=== PATIENT | female | born 1955 | race Caucasian/White ===

== ENCOUNTER → 2017-02-06 | Outpatient (CLI) | payer BC ==
--- NOTE | 2017-02-06 22:08 | Diagnostic Imaging Report ---
EXAMINATION: DEXA scan. INDICATION: Osteopenia. TECHNIQUE: Bone mineral density estimated based on dual energy radiography over the lumbar spine and femoral necks was performed. FINDINGS: The lumbar spine T-score is -2. This is 0.9% decreased density measurement compared to 2015. T-score over the left femoral neck is -0.8 and on the right side is -0.6. This is 1.4% increased density measurement compared to the previous exam. IMPRESSION: Osteopenia. Dictated by: Dictated on workstation # [id number]
== END ==
LOC: RAD 10:52
PROVIDERS: ATTEND Family Medicine
DX: M85.89 Other specified disorders of bone density and structure, multiple sites (principal)
CPT/HCPCS: 77080

== ENCOUNTER → 2017-02-17 | Outpatient (CLI) | payer BC ==
--- NOTE | 2017-02-18 10:49 | Diagnostic Imaging Report ---
Bilateral screening mammogram 2D views with tomosynthesis The current study was also evaluated with a Computer Aided Detection (CAD) system. INDICATION: Screening. No current complaints stated on the questionnaire. COMPARISON: 02/14/2016. FINDINGS: The breasts are composed of heterogeneously dense parenchyma which may decrease mammographic sensitivity. There is an asymmetry along the outer aspect of the right breast measuring 7 mm in size. Previously at this location there is suggestion of an oil cyst. This is potentially area of scarring or sequela of rupture of this oil cyst. The left breast demonstrate no definite change. IMPRESSION: Focal compression views and ultrasound evaluation for lateral right breast asymmetry is recommended. ACR BI-RADS Category 0: Incomplete. (Needs additional imaging evaluation). Result letter will be mailed to the patient. Note: At least 10% of breast cancer is not imaged by mammography. Dictated by: Dictated on workstation # [id number]
== END ==
LOC: RAD 09:45
PROVIDERS: ATTEND Family Medicine
DX: Z12.31 Encounter for screening mammogram for malignant neoplasm of breast (principal)
CPT/HCPCS: 77067

== ENCOUNTER → 2017-02-24 | Outpatient (CLI) | payer BC ==
--- NOTE | 2017-02-20 21:49 | HISTORY AND PHYSICAL ---
DATE OF SERVICE: COLONOSCOPY HISTORY AND PHYSICAL DATE OF ADMISSION: 02/24/2017 HISTORY OF PRESENT ILLNESS: The patient is a 61-year-old white female referred by Dr. Young for screening colonoscopy. Ten years ago, she underwent her first colonoscopy, at which time no abnormalities were noted. She is deemed to be of average risk. She is not aware of any family history for colon cancer. She has no personal history of inflammatory bowel disease and reports no bright red blood per rectum, melena or bowel habit change. PAST MEDICAL HISTORY: Significant for osteoporosis, for which she takes Evista. She has seasonal allergies, for which she takes Leslie and is on no other prescription medication. PAST SURGICAL HISTORY: She had a breast biopsy at the age of 23. She has had 2 C-sections and right rotator cuff repair. FAMILY HISTORY: Father at age of 71 secondary to stroke and complications of COPD, who was a long-time smoker. Mother at the age of 83 of complications of coronary artery disease. SOCIAL HISTORY: She has occasional social alcohol intake and no past smoking history. 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 PHYSICAL EXAMINATION: GENERAL: Reveals a well appearing, normal weight white female in no acute distress. VITAL SIGNS: Blood pressure 110/74, heart rate 72 and regular. HEENT: Reveals a Mallampati class II oropharyngeal configuration. No erythema or exudate noted. CHEST: Clear. CARDIOVASCULAR: Reveals a regular rate and rhythm without murmur, S3 or S4. ABDOMEN: Soft, supple without mass, organomegaly or tenderness. Bowel sounds are noted in all 4 quadrants. No evidence of bruits are noted. EXTREMITIES: Reveal no cyanosis, clubbing or edema. No evidence for telangiectasias are noted. ASSESSMENT AND PLAN: The patient is set up for screening colonoscopy on 03/07. Prep instructions with the Oneill-prep kit were given and questions were answered. Electronic medical record was reviewed. Forty-five minutes of care time was spent by myself with another 15 minutes of staff time setting up the procedure and going over prep instructions. I thank you for the referral of this pleasant lady. Sincerely, Job ID: [id number] DocumentID: [id number] Dictated Date: 02/20/2017 20:29:21 Furniture Sales Consultant Date: 02/20/2017 21:48:27 Dictated By: HOLLEY ALLEN MD
--- NOTE | 2017-02-24 22:40 | Diagnostic Imaging Report ---
EXAMINATION: Right breast diagnostic mammogram with tomography evaluation. The current study was also evaluated with a Computer Aided Detection (CAD) system. COMPARISON: Exam from 02/17/2017 is reviewed. FINDINGS: There is a nodule along the outer aspect of the right breast, persistent on the CC projection with probably benign calcifications seen. It is not well defined on the lateral projection but is matching a lesion with peripheral calcifications in favor of an oil cyst. This measures 7 mm. IMPRESSION: 7 mm nodule persists in the lateral aspect of the right breast with calcifications, in favor of an oil cyst. Ultrasound evaluation pending. ACR BI-RADS Category 0: Incomplete. (Needs additional imaging evaluation). Result letter will be mailed to the patient. Note: At least 10% of breast cancer is not imaged by mammography. Dictated by: Dictated on workstation # [id number]
--- NOTE | 2017-02-24 22:46 | Diagnostic Imaging Report ---
EXAMINATION: Right breast ultrasound. INDICATION: Asymmetry along the outer aspect of the right breast. FINDINGS: There is a hypoechoic smoothly marginated lesion measuring 0.6 x 0.5 x 0.5 cm at the 9 o'clock zone, 6 cm from the nipple. This is favored to be of benign etiology. This does not have specific suggestive features of an oil cyst by ultrasound, and the exact etiology is uncertain. IMPRESSION: There is a circumscribed hypoechoic indeterminate lesion measuring up to 0.6 cm at the 9 o'clock zone, 6 cm from the nipple and appears to match the asymmetry seen on mammography and is favored to be benign, although exact etiology is not certain. Four-month followup right breast mammogram and ultrasound evaluation is recommended to ensure no adverse development. ACR BI-RADS Category 3: Probably benign findings. Dictated by: Dictated on workstation # [id number]
== END ==
LOC: RAD 08:58
PROVIDERS: ATTEND Family Medicine
DX: N64.89 Other specified disorders of breast (principal)

== ENCOUNTER 2017-03-21 05:35 | Outpatient (CLI) | payer BC ==
[~2017-03-21] VITALS: Ht 165.1 cm; Wt 67.1 kg
[2017-03-21] MEDS ORDERED: RALO60TA12 PO (11:48)
== END 2017-03-21 11:49 ==
LOC: PREOP 05:35
PROVIDERS: ATTEND Internal Medicine
DX: Z01.818 Encounter for other preprocedural examination (principal); Z12.11 Encounter for screening for malignant neoplasm of colon

== ENCOUNTER 2017-03-28 07:18 | Day surgery (SDC) | payer BC ==
--- NOTE | 2017-03-05 06:20 | HISTORY AND PHYSICAL ---
DATE OF SERVICE: ADDENDUM DATE OF ADMISSION: 03/28/2017 HISTORY OF PRESENT ILLNESS: The patient is a 61-year-old white female referred by Dr. Young for screening colonoscopy. Ten years ago she underwent her first colonoscopy, which was unremarkable. She had been seen in the office on 02/20/2017 and had to reschedule her colonoscopy to 03/28/2016. In the interval, there have been no changes in health history. PHYSICAL EXAMINATION: GENERAL: Reveals a well-appearing white female in no acute distress. VITAL SIGNS: Blood pressure 114/72. CHEST: Clear. CARDIOVASCULAR: Revealed a regular rate and rhythm without murmur, S3 or S4. ASSESSMENT: The patient is rescheduled for her second screening colonoscopy on 03/28/2017. She already has prep instructions. Job ID: [id number] DocumentID: [id number] Dictated Date: 03/04/2017 09:38:54 Retail Grocer Date: 03/04/2017 10:00:23 Dictated By: HOLLEY ALLEN MD
[~2017-03-28] VITALS: Ht 165.1 cm; Wt 67.1 kg
[~2017-03-28 07:18] MED LIST: RALO60TA12 PO
[2017-03-28] MEDS ORDERED: 1/2 NS IV SOLUTION 1,000 ML IV STA (07:25)
[2017-03-28] MEDS ORDERED: LIDOCAINE JELLY 2% (XYLOCAINE) 5 ML TUBE MM PRN (07:30)
[2017-03-28 07:47] VITALS: BP 116/77
--- NOTE | 2017-03-28 07:48 | Pre-Op Note & Conscious Sedat ---
Pre-Operative Progress Note H&P Reviewed The H&P was reviewed, patient examined and no changes noted. Date H&P Reviewed: Mar 28, 2017 Time H&P Reviewed: 07:48 Conscious Sedation Pre-Proced ASA Class: 1 Airway Mallampati Classification: ([place] appropriate class) I. II. III, IV Lungs Heart ASA score ASA 1: a normal healthy patient ASA 2: a patient with a mild systemic disease (mid diabetes, controlled hypertension, obesity ASA 3: a patient with a severe systemic disease that limits activity (angina , COPD, prior Myocardial infarction) ASA 4: a patient with an incapacitating disease that is a constant threat to life (CHF, renal failure) ASA 5: a moribund patient not expected to survive 24 hrs. (ruptured aneurysm) ASA 6: a declared brain patient whose organs are being harvested. For emergent operations, add the letter E after the classification Grade 2 Sedation Plan: Analgesia, Amnesia, Plan communicated to team members, Discussed options with patient/fam, Discussed risks with patient/fam Note The patient is an appropriate candidate to undergo the planned procedure, sedation, and anesthesia. The patient immediately re-assessed prior to indication. HOLLEY ALLEN MD Mar 28, 2017 07:48
[2017-03-28] MEDS ORDERED: LIDOCAINE JELLY 2% (XYLOCAINE) 5 ML TUBE ONE (08:16)
[2017-03-28] MEDS ORDERED: MIDAZOLAM 2 MG/2 ML (VERSED) VIAL ONE ×2 (08:17)
[2017-03-28] MEDS ORDERED: fentaNYL INJECTION 100 MCG/2 ML AMP ONE (08:17)
[2017-03-28] MEDS: fentaNYL INJECTION 100 MCG/2 ML AMP IVP PRN ×2 (08:28→08:38)
[2017-03-28] MEDS: MIDAZOLAM 2 MG/2 ML (VERSED) VIAL IVP PRN ×2 (08:30→08:45)
[2017-03-28 09:30] VITALS: BP 106/54
[2017-03-28 09:50] VITALS: BP 110/69
--- NOTE | 2017-03-28 13:07 | OPERATIVE REPORT ---
DATE OF SERVICE: COLONOSCOPY SUMMARY INDICATION FOR THE PROCEDURE: Screening colonoscopy. The patient was placed in the left lateral decubitus position. Prior to undergoing colonoscopy, digital rectal evaluation was performed. Anal sphincter tone was normal. A small anterior rectocele was noted. No other abnormalities, no additional inspection of the anal canal or distal rectal vault. The colonoscope was then inserted into the rectum and under direct visualization advanced to the cecum. The cecum was identified by identification of the ileocecal valve, cecal strap. Photographic documentation was obtained. Careful inspection was made as the colonoscope was withdrawn. FINDINGS: There was no evidence for internal or external hemorrhoids and the rectum was unremarkable. Mild to moderate diverticular disease confined to the sigmoid colon was present with haustral hypertrophy. No evidence for diverticulitis was noted. No other sigmoid colonic abnormalities were appreciated. The descending colon, splenic flexure, transverse colon, hepatic flexure, ascending colon and cecum were unremarkable. ASSESSMENT: 1. Mild to moderate diverticular disease confined to the sigmoid colon was present with haustral hypertrophy, but no evidence for diverticulitis. 2. Digital rectal evaluation was compatible with small anterior rectocele. This was otherwise normal colonoscopy of the cecum. As the patient reports no family history for colon cancer, would advocate consideration for repeat screening colonoscopy in 10 years. I thank you for the referral of this pleasant lady. Job ID: [id number] DocumentID: [id number] Dictated Date: 03/28/2017 09:57:48 Restaurant Management Internship Date: 03/28/2017 13:06:13 Dictated By: HOLLEY ALLEN MD MTDD
--- OUTSIDE RECORDS SUMMARY | 2017-03-29 00:12 | XMS REPORT | Continuity of Care Document ---
Author Author [facility] Address Unknown Phone Unavailable Allergies There is no data. Medications There is no data. Problems Date Dx Coded Attending Type Code Diagnosis Diagnosed By 01/03/2012 JANINA WRAY APRN V04.81 FLU DX (3 YRS AND ABOVE, IM) 01/03/2012 NILS FINANCE CONSULTANTHEMANTH HorvathYL A V04.81 FLU DX (3 YRS AND ABOVE, IM) 01/12/2013 JANINA WRAY APRN A V06.1 TDAP DX 01/12/2013 HEMANTH WRAY APRNYL A V06.1 TDAP DX 02/10/2014 RANULFO PIMENTEL Ot V76.12 04/13/2014 Ot V76.12 04/13/2014 Ot 733.00 04/13/2014 Ot 793.89 04/13/2014 Ot V76.12 04/13/2014 Ot V76.12 04/13/2014 Ot 733.00 04/13/2014 Ot V76.12 04/13/2014 ANNA SILVESTRE DO Ot V76.12 04/13/2014 RANULFO PIMENTEL Ot V76.12 05/02/2014 ANNA SILVESTRE DO S Ot 729.5 05/02/2014 ANNA SILVESTRE DO S Ot 729.81 05/03/2014 Ot V76.12 05/03/2014 Ot 733.00 05/03/2014 Ot 793.89 05/03/2014 Ot V76.12 05/03/2014 Ot V76.12 05/03/2014 Ot 733.00 05/03/2014 Ot V76.12 05/03/2014 ANNA SILVESTRE DO S Ot V76.12 05/03/2014 RANULFO PIMENTEL Ot V76.12 05/03/2014 ORENDER DO, ANNA S Ot 729.5 05/03/2014 ORENDER DO, ANNA S Ot 729.81 09/05/2014 Ot 733.00 09/05/2014 Ot 793.89 09/05/2014 Ot V76.12 09/05/2014 Ot V76.12 09/05/2014 Ot 733.00 09/05/2014 Ot V76.12 09/05/2014 ORENDER DO, ANNA S Ot V76.12 09/05/2014 RANULFO PIMENTEL VIDEO INTERN Ot V76.12 09/05/2014 ORENDER DO, ANNA S Ot 729.5 09/05/2014 ORENDER DO, ANNA S Ot 729.81 11/10/2014 Ot 733.00 11/10/2014 Ot 793.89 11/10/2014 Ot V76.12 11/10/2014 Ot V76.12 11/10/2014 Ot 733.00 11/10/2014 Ot V76.12 11/10/2014 ERONNDER DO, ANNA S Ot V76.12 11/10/2014 RANULFO PIMENTEL VIDEO INTERN Ot V76.12 11/10/2014 ORENDER DO, ANNA S Ot 729.5 11/10/[address] [facility] Ot 729.81 02/02/2015 Ot 733.00 02/02/2015 Ot 793.89 02/02/2015 Ot V76.12 02/02/2015 Ot V76.12 02/02/2015 Ot 733.00 02/02/2015 Ot V76.12 02/02/2015 ORENDER DO, ANNA S Ot V76.12 02/02/2015 RANULFO PIMENTEL VIDEO INTERN Ot V76.12 02/02/2015 ORENDER DO, ANNA S Ot 729.5 02/02/2015 ORENDER DO, ANNA S Ot 729.81 02/14/2015 ORENDER DO, ANNA S Ot M85.80 02/14/[address] [facility] S Ot Z12.31 02/14/[address] [facility], [facility] S Ot Z13.820 02/24/2015 NIRMALA ALVAREZ, ANNA S Ot M85.80 02/24/2015 NIRMALA ALVAREZ, ANNA S Ot Z12.31 02/24/2015 NIRMALA ALVAREZ, ANNA S Ot Z13.820 02/14/2016 NIRMALA ALVAREZ, ANNA S Ot Z12.31 ENCNTR SCREEN MAMMOGRAM FOR MALIGNANT NE 02/19/2016 ERONNDSHANNON ALVAREZ, ANNA S Ot Z12.31 ENCNTR SCREEN MAMMOGRAM FOR MALIGNANT NE 02/23/2016 ERONNDSHANNON ALVAREZ, ANNA S Ot Z12.31 ENCNTR SCREEN MAMMOGRAM FOR MALIGNANT NE 02/07/2017 NIRMALA ALVAREZ, ANNA S Ot M85.89 OTH DISRD OF BONE DENSITY AND STRUCTURE, 02/20/2017 NIRMALA ALVAREZ, ANNA S Ot M85.89 OTH DISRD OF BONE DENSITY AND STRUCTURE, 02/26/2017 NIRMALA ALVAREZ, ANNA S Ot Z12.31 ENCNTR SCREEN MAMMOGRAM FOR MALIGNANT NE 03/03/2017 HOLLEY ALLEN MD Ot Z01.818 ENCOUNTER FOR OTHER PREPROCEDURAL EXAMIN 03/03/2017 HOLLEY ALLEN MD Ot Z12.11 ENCOUNTER FOR SCREENING FOR MALIGNANT NE 03/07/2017 NIRMALA ALVAREZ, ANNA S Ot N64.89 OTHER SPECIFIED DISORDERS OF BREAST Procedures There is no data. Results There is no data. Encounters ACCT No. Visit Date/Time Discharge Status Pt. Type Provider Facility Loc./Unit Complaint [id number] 12/28/2013 09:18:00 12/28/2013 23:59:59 CLS Outpatient JANINA WRAY APRN [id number] 01/12/2013 10:18:00 01/12/2013 23:59:59 CLS Outpatient JANINA WRAY APRN [id number] 03/07/2017 07:30:00 03/07/2017 23:59:59 CLS Preadmit HOLLEY ALLEN MD [facility] ENDO SCREENING [id number] 02/27/2017 10:00:00 02/27/2017 10:00:00 CAN Preadmit HOLLEY ALLEN MD [facility] PREOP COLO [id number] 02/24/2017 08:58:00 02/24/2017 23:59:59 CLS Outpatient ORENDER DO, ANNA S [facility] RAD BREAST ASYMMETRY [id number] 02/17/2017 09:45:00 02/17/2017 23:59:59 CLS Outpatient ORENDER DO, ANNA S [facility] RAD BILATERAL MAMMOGRAM SCREENING [id number] 02/06/2017 10:52:00 02/06/2017 23:59:59 CLS Outpatient ORENDER DO, ANNA S [facility] RAD M85.89 [id number] 02/14/2016 09:04:00 02/14/2016 23:59:59 CLS Outpatient ORENDER DO, ANNA S [facility] RAD SCREENING [id number] 02/09/2015 10:47:00 02/09/2015 23:59:59 CLS Outpatient ORENDER DO, ANNA S [facility] RAD [id number] 04/13/2014 15:45:00 04/13/2014 23:59:59 CLS Outpatient ORENDER DO, ANNA S [facility] RAD [id number] 01/24/2014 11:21:00 01/24/2014 23:59:59 CLS Outpatient RANULFO PIMENTEL VIDEO INTERN [facility] RAD [id number] 01/20/2013 09:53:00 01/20/2013 23:59:59 CLS Outpatient ORENDER DO, ANNA S [facility] RAD [id number] 01/17/2012 08:25:00 Document Registration [id number] 01/07/2011 10:20:00 Document Registration [id number] 01/08/2010 09:40:00 Document Registration [id number] 01/05/2009 12:49:00 Document Registration
--- OUTSIDE RECORDS SUMMARY | 2017-03-29 00:12 | XMS REPORT ---
Author Author JANINA WRAY Organization [employer] Address Unknown Phone Unavailable Care Team Providers Care Dairy Feed Sales Consultant Name Role Phone JANINA WRAY CP Unavailable Allergies No Known Allergies Problems Problem Type Condition Code Onset Dates Condition Status Problem DTAP TEST V06.1 Active Assessment Encounter for immunization Z23 Active Problem Need for prophylactic vaccination and inoculation, Influenza V04.81 Active Medications No Known Medications Procedures Procedure Coding System Code Date SINGLE IMMUNIZATION ADMIN CPT-4 33433 Dec 29, 2014 FLUARIX QUAD (3 & UP)-GSK-2014 CPT-4 32650 Dec 29, 2014 Results No Known Results Immunizations Vaccine Administration Date FLUARIX QUAD (3 & UP)-GSK-2014Dec 29, 2014 Summary Purpose [employer] Submission
== END 2017-03-28 10:08 | disposition home or self-care (01) ==
LOC: ENDO 07:18
PROVIDERS: ATTEND Internal Medicine
DX: Z12.11 Encounter for screening for malignant neoplasm of colon (principal); K57.30 Diverticulosis of large intestine without perforation or abscess without bleeding; N81.6 Rectocele

== ENCOUNTER → 2017-06-26 | Outpatient (CLI) | payer BC ==
--- NOTE | 2017-06-26 20:34 | Diagnostic Imaging Report ---
EXAMINATION: Right breast ultrasound. INDICATION: Abnormal mammogram. FINDINGS: The screening mammogram performed on 02/17/2017 noted an asymmetric density along the lateral aspect of the right breast. The subsequent diagnostic mammogram and ultrasound performed on 02/24/2017 noted a small 5 x 6 mm avascular hypoechoic lesion in this area. On the diagnostic mammogram performed earlier today, the appearance of the right breast did not seem to have changed. On this study, the hypoechoic lesion is again identified and is virtually unchanged in size or appearance. The stability of this finding over a four-month period would suggest it is not related to an aggressive neoplastic process. If a tissue diagnosis is desired, then ultrasound-guided biopsy could be performed. If there is no intervention at this time, then a short-term (six-month) follow-up mammogram and ultrasound exam of the right breast should be obtained. There is no other abnormality identified. IMPRESSION: 1. The small hypoechoic lesion in the 9 o'clock position of the right breast seen previously is again evident and appears stable. Considerations and recommendations as above. 2. These results will be discussed with Dr. Young. ACR BI-RADS Category 3: Probably benign findings. Dictated on workstation # [id number]
--- NOTE | 2017-06-26 20:38 | Diagnostic Imaging Report ---
EXAMINATION: Unilateral Diagnostic right mammogram. INDICATION: Followup exam. The current study was also evaluated with a Computer Aided Detection (CAD) system. FINDINGS: The previous screening mammogram performed on 02/17/2017 suggested an asymmetric density along the lateral aspect of the right breast. The subsequent diagnostic mammogram and ultrasound exam performed on 02/24/2017 noted a 7 mm nodule in the lateral aspect of the breast. This is felt to represent an oil cyst. On this exam, the overall appearance of the right breast has not changed significantly. The fibroglandular tissue is heterogeneously dense, and this does limit the sensitivity of this exam. The nodular density in question is not quite as conspicuous on this study. There are a few benign-appearing calcifications in this area. IMPRESSION: The appearance of the right breast is stable when compared to the prior study. Ultrasound is pending for further evaluation. ACR BI-RADS Category 0: Incomplete. (Needs additional imaging evaluation). Result letter will be mailed to the patient. Note: At least 10% of breast cancer is not imaged by mammography. Dictated by: Dictated on workstation # [id number]
== END ==
LOC: RAD 07:53
PROVIDERS: ATTEND Nurse Practitioner Family
DX: N64.89 Other specified disorders of breast (principal); N63.0 Unspecified lump in unspecified breast

== ENCOUNTER → 2018-02-27 | Outpatient (CLI) | payer BC ==
--- NOTE | 2018-02-27 19:50 | Diagnostic Imaging Report ---
INDICATION: Right breast density. Patient presents for six-month follow-up. Correlation is made with prior mammograms from 06/26/2017 as well as 02/24/2017 and 02/17/2017. 2-D and 3-D bilateral diagnostic mammography was performed with computer-aided detection (CAD) system. FINDINGS: Both breasts show scattered fibroglandular densities. Overall parenchymal pattern is stable. There are benign calcifications. Previously noted density in the outer portion of the right breast is not well seen on today's study. No new mass or malignant-appearing microcalcifications are seen. The axillae are unremarkable. IMPRESSION: Stable bilateral mammograms with no mammographic features suspicious for malignancy. Even so, sonographic interrogation of the outer right breast to further evaluate previously noted nodule. ACR BI-RADS Category 0: Incomplete. (Needs additional imaging evaluation). Result letter will be mailed to the patient. Note: At least 10% of breast cancer is not imaged by mammography. Dictated on workstation # [id number]
--- NOTE | 2018-02-27 19:53 | Diagnostic Imaging Report ---
INDICATION: Follow-up right breast nodule. Correlation is made with prior ultrasound from 06/26/2017. FINDINGS: Sonographic interrogation of the outer right breast was performed. The circumscribed hypoechoic nodule at 9 o'clock location of the right breast 6 cm from the nipple is again seen. This measures approximately 5 mm x 5 mm x 4 mm. This compares with 5 mm x 6 mm x 6 mm on prior. No new mass is seen. No internal vascularity is present. IMPRESSION: Stable hypoechoic nodule at 9 o'clock location right breast. This now shows one-year stability. Additional six-month follow-up right mammogram and ultrasound is recommended to show continued stability. ACR BI-RADS Category 3: Probably benign findings. Dictated on workstation # [id number]
== END ==
LOC: RAD 12:12
PROVIDERS: ATTEND Family Medicine
DX: N63.10 Unspecified lump in the right breast, unspecified quadrant (principal); N64.89 Other specified disorders of breast
CPT/HCPCS: 77066

== ENCOUNTER → 2018-09-28 | Outpatient (CLI) | payer BC ==
--- NOTE | 2018-09-28 14:14 | Diagnostic Imaging Report ---
INDICATION: Six-month followup right breast nodule. COMPARISON: 02/27/2018 and . TECHNIQUE: Unilateral right 2D and 3D diagnostic mammography was performed with CAD. FINDINGS: Scattered fibroglandular densities in the right breast are again noted. There are benign calcifications. No dominant mass or malignant appearing microcalcifications are seen. The right axilla is unremarkable. IMPRESSION: Stable right mammogram. A right breast ultrasound is recommended to further evaluate the small hypoechoic nodule noted at the 9 o'clock position on the 03/09/2018 sonogram. This will be performed today. ACR BI-RADS Category 0: Incomplete. (Needs additional imaging evaluation). Result letter will be mailed to the patient. Note: At least 10% of breast cancer is not imaged by mammography. Dictated by: Dictated on workstation # [id number]
--- NOTE | 2018-09-28 14:26 | Diagnostic Imaging Report ---
INDICATION: Six-month followup right breast nodule. COMPARISON: 02/27/2018. TECHNIQUE: Sonographic interrogation of the 9 o'clock location of the right breast was performed. FINDINGS: The previously noted hypoechoic nodule at this location 6 cm from the nipple is again noted and stable in size at 5 mm x 6 mm x 5 mm. No internal vascularity is seen. IMPRESSION: Stable subcentimeter hypoechoic nodule at the 9 o'clock location of the right breast 6 cm from the nipple. This now shows 18 months of stability. One final followup is recommended in 6 months to show 2 years of stability. ACR BI-RADS Category 3: Probably benign findings. Dictated by: Dictated on workstation # [id number]
== END ==
LOC: RAD 12:23
PROVIDERS: ATTEND Family Medicine
DX: N63.10 Unspecified lump in the right breast, unspecified quadrant (principal)

== ENCOUNTER → 2019-03-10 | Outpatient (CLI) | payer BC ==
--- NOTE | 2019-03-10 09:23 | Diagnostic Imaging Report ---
INDICATION: Right foot pain COMPARISON: None FINDINGS: 3 views of the right foot demonstrate no acute fracture or dislocation. There are no focal osseous lesions. There is no soft tissue swelling. Joint spaces are well maintained. No radiopaque foreign bodies are seen. IMPRESSION: No acute fractures or dislocations of the right foot. Dictated by: Dictated on workstation # [id number]
== END ==
LOC: RAD 09:00
PROVIDERS: ATTEND Nurse Practitioner Family
DX: M79.671 Pain in right foot (principal)
CPT/HCPCS: 73630

== ENCOUNTER → 2019-04-01 | Outpatient (CLI) | payer BC ==
--- NOTE | 2019-04-01 19:04 | Diagnostic Imaging Report ---
INDICATION: Six-month follow-up right breast nodule. Correlation is made with prior mammograms of 02/27/2018 and 09/28/2018. 2-D and 3-D bilateral diagnostic mammography was performed. The current study was also evaluated with a Computer Aided Detection (CAD) system. Scattered fibroglandular densities are identified bilaterally. Benign calcifications are noted. No mass or malignant appearing microcalcifications are seen. Axillae are unremarkable. IMPRESSION: Stable bilateral mammograms with no mammographic features suspicious for malignancy. The patient is scheduled to undergo right breast ultrasound for six-month follow-up of previously noted right breast nodule. This will be performed today. ACR BI-RADS Category 0: Incomplete. (Needs additional imaging evaluation). Result letter will be mailed to the patient. Note: At least 10% of breast cancer is not imaged by mammography. Dictated by: Dictated on workstation # [id number]
--- NOTE | 2019-04-01 19:35 | Diagnostic Imaging Report ---
EXAM: MRI right foot without contrast. DATE: April 01, 2019. INDICATION: 63-year-old female, pain of the second through fourth toes and swelling. No known recent injury. COMPARISON: Right foot radiographs March 10, 2019. TECHNIQUE: Multiple noncontrast MRI sequences of the right foot were obtained. FINDINGS: There is very prominent abnormal marrow edema within the diaphysis of the second metatarsal with prominent adjacent soft tissue swelling. There is some loss of normal T1 marrow signal as well as periosteal reaction present. There is no clearly identified fracture line. There is no visible skin defect on MRI imaging although correlation with physical exam is recommended. There is no identified focal fluid collection on noncontrast imaging evaluation. The additional bone marrow signal is unremarkable. The joint spaces are well preserved. There is no large joint effusion. The Lisfranc ligament proper is intact. The visualized portions of the posterior flexor tendons, anterior extensor tendons and peroneal tendons are intact. IMPRESSION: 1. Prominent marrow edema in the second metatarsal diaphysis with some T1 marrow signal loss and periosteal reaction. There is no identified fracture line. There is prominent adjacent soft tissue swelling. This most likely relates to stress reaction without current fracture. Osteomyelitis would be considered less likely without an adjacent skin ulcer as hematogenous spread of osteomyelitis would be significantly less common than contiguous spread in an adult patient. This would be an uncommon location for either a metastatic lesion or primary bone malignancy. 2. Intact Lisfranc ligament proper. Intact visualized tendons. 3. Well-preserved joint spaces without joint effusion. Dictated by: Dictated on workstation # [id number]
--- NOTE | 2019-04-01 20:38 | Diagnostic Imaging Report ---
INDICATION: Six-month follow-up right breast nodule. COMPARISON: Prior right breast ultrasound from 09/28/2018. FINDINGS: There is a previously noted hypoechoic nodule at the 9:00 location of the right breast, 6 cm from the nipple, again noted measuring 4 mm x 6 mm x 5 mm, stable when compared to prior exam. This now shows two years of stability. IMPRESSION: Stable subcentimeter nodule at the 9:00 location of the right breast, 6 cm from the nipple. This now shows two years of stability. Patient may return to routine annual screening mammography. ACR BI-RADS Category 2: Benign findings. Result letter will be mailed to the patient. Note: At least 10% of breast cancer is not imaged by mammography. Dictated by: Dictated on workstation # [id number]
== END ==
LOC: RAD 13:47
PROVIDERS: ATTEND Family Medicine
DX: N63.10 Unspecified lump in the right breast, unspecified quadrant (principal); M79.89 Other specified soft tissue disorders
CPT/HCPCS: 77066

== ENCOUNTER → 2020-04-03 | Outpatient (CLI) | payer BC ==
--- NOTE | 2020-04-03 11:39 | Diagnostic Imaging Report ---
Digital mammogram. Indication: Bilateral screening This study was compared to the prior exams of 04/01/2019, 09/28/2018, 02/27/2018 and 02/17/2017. At this time there are no current complaints. The current study was also evaluated with a Computer Aided Detection (CAD) system. FINDINGS: The fibroglandular tissue in both breasts is heterogeneously dense. This does limit the sensitivity of this exam. Overall, there does not appear to have been any significant change when compared to the prior study. No primary or secondary sign of malignancy is noted. IMPRESSION: There is no radiographic evidence for malignancy. ACR BI-RADS Category 1: Negative. Result letter will be mailed to the patient. Note: At least 10% of breast cancer is not imaged by mammography. Dictated by: Dictated on workstation # [id number]
== END ==
LOC: RAD 10:00
PROVIDERS: ATTEND Family Medicine
DX: Z12.31 Encounter for screening mammogram for malignant neoplasm of breast (principal)
CPT/HCPCS: 77063; 77067

== ENCOUNTER → 2020-04-11 | Outpatient (CLI) | payer BC ==
--- NOTE | 2020-04-11 15:30 | Diagnostic Imaging Report ---
INDICATION: Postmenopausal screening COMPARISON: 02/06/2017 FINDINGS: AP Spine L1-L4: [BMD (g/cm2): 0.988] [T-Score: -1.8] [Z-Score: -0.4] [BMD Previous: 0.961] [BMD % Change: 2.8] LT Hip Neck: [BMD (g/cm2): 0.814] [T-Score: -1.6] [Z-Score: -0.3] LT Hip Total: [BMD (g/cm2):0.918] [T-Score:-0.7] [Z-Score: 0.3] [BMD Previous: 0.910] [BMD % Change: 0.9] RT Hip Neck: [BMD (g/cm2):0.852] [T-Score:-1.3] [Z-Score:0.0] RT Hip Total: [BMD (g/cm2):0.947] [T-score:-0.5] [Z-Score:0.6] [BMD Previous:0.936] [BMD % Change:1.2] *Indicates significant change from prior examination based on 95% confidence level. World Health Organization criteria for BMD interpretation classify patients as Normal (T-score at or above -1.0), Osteopenic (T-score between -1.0 and -2.5) or Osteoporotic (T-score at or below -2.5). LIMITATIONS AND MODIFICATION: None. FRACTURE RISK (FRAX SCORE): The ten year probability of (%): Major Osteoporotic Fracture: [NA] Hip Fracture: [NA] IMPRESSION: 1. Osteopenia (Low bone mass). 2. No significant change in bone mineral density since prior examination. 3. See below National Osteoporosis Foundation guidelines on when to potentially initiate pharmacologic therapy. Based on the National Osteoporosis Foundation Guidelines, pharmacologic treatment should be initiated in any of the following, unless clinical conditions suggest otherwise: * Any patient with prior fragility fracture of the hip or vertebrae. A spine fracture indicates 5X risk for subsequent spine fracture and 2X risk for subsequent hip fracture. * Osteoporosis (T-score <-2.5). * Postmenopausal women and men age 50 and older with low bone mass/osteopenia (T-score between -1.0 and -2.5) by DXA and 10-year major osteoporotic fracture greater than 20% or a 10-year probability of hip fracture greater than 3%. These fracture risks are supplied above in the FRAX score, if applicable. * Clinician judgement and/or patient preferences may indicate treatment for people with 10-year fracture probabilities above or below these levels. Dictated by: Dictated on workstation # [id number]
== END ==
LOC: RAD 13:06
PROVIDERS: ATTEND Family Medicine
DX: M85.851 Other specified disorders of bone density and structure, right thigh (principal); M85.852 Other specified disorders of bone density and structure, left thigh; Z78.0 Asymptomatic menopausal state
CPT/HCPCS: 77080

== ENCOUNTER → 2021-04-11 | Outpatient (CLI) | payer BC, MEDICARE ==
--- NOTE | 2021-04-11 15:35 | Diagnostic Imaging Report ---
INDICATION: Routine screening. COMPARISON: 04/03/2020 and 04/01/2019. TECHNIQUE: 2D and 3D bilateral screening mammography was performed with CAD. FINDINGS: Both breasts are heterogeneously dense, limiting the sensitivity of mammography. There are benign calcifications in the right breast. No mass or malignant-appearing microcalcifications are seen. The axillae are unremarkable. IMPRESSION: No mammographic features suspicious for malignancy are identified. ACR BI-RADS Category 2: Benign findings. Result letter will be mailed to the patient. Note: At least 10% of breast cancer is not imaged by mammography. Dictated by: Dictated on workstation # [id number]
== END ==
LOC: RAD 10:30
PROVIDERS: ATTEND Family Medicine
DX: Z12.31 Encounter for screening mammogram for malignant neoplasm of breast (principal)
CPT/HCPCS: 77063; 77067

== ENCOUNTER → 2022-04-17 | Outpatient (CLI) | payer MEDICARE ==
--- NOTE | 2022-04-17 12:47 | Diagnostic Imaging Report ---
INDICATION: Routine screening Comparison is made with prior mammogram of 04/11/2021 and 04/03/2020. 2-D and 3-D bilateral screening mammography was performed with CAD. Both breasts remain heterogeneously dense, limiting the sensitivity of mammography. There are benign calcifications on the right. The overall parenchymal pattern appears stable. No mass or malignant-appearing microcalcifications are seen. Axillae are unremarkable. IMPRESSION: No mammographic features suspicious for malignancy are identified. ACR BI-RADS Category 2: Benign findings. Result letter will be mailed to the patient. Note: At least 10% of breast cancer is not imaged by mammography. BI-RADS Category 2 Dictated by: Dictated on workstation # [id number]
== END ==
LOC: RAD 09:48
PROVIDERS: ATTEND Nurse Practitioner Family
DX: Z12.31 Encounter for screening mammogram for malignant neoplasm of breast (principal)
CPT/HCPCS: 77063; 77067